=== PATIENT | male | born 1980 | race Caucasian/White ===

== ENCOUNTER 2018-10-30 12:45 | Emergency (ER) | payer SELFPAY ==
[2018-10-30 12:54] VITALS: BP 137/89; PULSE 81; RESP 22; TEMP 36.8; O2SAT 99; BMI 28.6
--- NOTE | 2018-10-30 13:01 | HMH.EDUTC ---
[facility] [place] Clinical Impression: Asthma exacerbation Qualifiers: Asthma severity: moderate Asthma persistence: persistent Qualified Code(s): J45.41 - Moderate persistent asthma with (acute) exacerbation Disposition: Home, Self-Care Condition on Discharge: Good Instructions: Asthma -- Adult Additional Instructions: Drink plenty of fluids. Take tylenol or ibuprofen for pain Take the medications as prescribed. Don't start the steroids until tomorrow. Go ahead and start the antibiotics today. The cough syrup will make you drowsy, so don't be driving or operating heavy machinery after taking it. Return or go to your regular doctor if you're not getting better in 48 hours. GO TO THE ER FOR ANY LIFE THREATENING SYMPTOMS, SUCH CHEST PAIN OR SHORTNESS OF BREATH Prescriptions: Promethazine/Dextromethorphan [Promethazine-Dm Syrup] 5 ml PO Q6HP PRN #240 syrup PRN Reason: Cough methylPREDNISolone [Medrol] 4 mg PO DIRECTED 6 Days #21 tab.ds.pk Azithromycin [Z-Supa 250mg Tab] 250 mg PO UD DOSE PK #6 tab Referrals: Provider,Referral, MD [Primary Care Provider] - Time of Disposition: 13:22 Medical Decision Making - Medical Records Medical records reviewed: Yes: I reviewed the patient's medical records. - Rodríguez Inquiry Pt receiving controlled substance: No Rodríguez was queried for this patient: No Vital Signs: 10/30/18 12:54 10/30/18 13:24 Temperature 98.3 F 98.3 F Temperature Source Oral Oral Pulse Rate 81 Pulse Rate [Right Brachial] 81 Respiratory Rate 22 22 Blood Pressure 137/89 Blood Pressure [Right Arm] 137/89 Blood Pressure Mean [Right Arm] 105 Blood Pressure Source Automatic Cuff Blood Pressure Source [Right Arm] Automatic Cuff Blood Pressure Position Sitting Blood Pressure Position [Right Arm] Sitting 02 Sat by Pulse Oximetry 99 Oxygen Delivery Method Room Air Room Air Orders (Tests/Meds): ED MEDICATIONS Discontinued Medications Generic Name Dose Route Start Last Admin Trade Name Freq PRN Reason Stop Dose Admin Ceftriaxone Sodium 1 gm 10/30/18 13:09 10/30/18 13:15 Rocephin 1gm Vial IM 10/30/18 13:10 1 gm ONCE ONE Administration Protocol Lidocaine HCl 0 ml 10/30/18 13:09 10/30/18 13:15 Lidocaine 1% 10ml Mdv IM 10/30/18 13:10 2.1 ml ONCE ONE Administration Methylprednisolone Sodium Succinate 125 mg 10/30/18 13:09 10/30/18 13:15 Solu-Medrol 125mg/2ml Vial IM 10/30/18 13:10 125 mg ONCE ONE Administration [facility] [place] - General Stated complaint: Congestion/Asthma Time Seen by Provider: 10/30/18 13:01 Mode of Arrival: Family Vehicle Source of Information: Patient Limitations: No Limitations Description of Symptoms (Recalled from Triage Doc. by RN): C/O DIFFICULTY BREATHING,TEMPERATURE X 2 WEEKS HEENT Symptoms (Recalled from RN notes): No Resp Symptoms (Recalled from RN notes): Yes Skin Symptoms (Recalled from RN notes): No MS Symptoms (Recalled from RN notes): No Functional Status (Recalled from RN notes): N/A - History of Present Illness Provider Complaint: He has a history of asthma. He states that over the past 2 weeks he has been coughing more than normal and wheezing more than normal. - Related Data Home Medications Medication Instructions Recorded Confirmed Buprenorphine HCl/Naloxone HCl 1.5 tab SL DAILY 10/30/18 10/30/18 [Zubsolv 5.7-1.4 mg Tablet Sl] Previous Rx's Medication Instructions Recorded Azithromycin [Z-Supa 250mg Tab] 250 mg PO UD DOSE PK #6 tab 10/30/18 Promethazine/Dextromethorphan 5 ml PO Q6HP PRN #240 syrup 10/30/18 [Promethazine-Dm Syrup] methylPREDNISolone [Medrol] 4 mg PO DIRECTED 6 Days #21 10/30/18 tab.ds.pk Allergies Allergy/AdvReac Type Severity Reaction Status Date / Time No Known Allergies Allergy Verified 07/20/18 16:05 - Worker's Comp Is this a Worker's Comp case?: No [facility] History - Hepatitis A Screen Drug use history?: No High risk sexual be
[2018-10-30 13:24] VITALS: BP 137/89; PULSE 81; RESP 22; TEMP 36.8; O2SAT 99
== END 2018-10-30 13:27 | disposition home or self-care (01) ==
PROVIDERS: Emergency Provider Nurse Practitioner Family
DX: J45.21 Mild intermittent asthma with (acute) exacerbation (principal); F17.210 Nicotine dependence, cigarettes, uncomplicated
CPT/HCPCS: 96372; 99201

== ENCOUNTER → 2020-01-31 14:23 | Outpatient (CLI) | payer BC, SELFPAY ==
[2020-02-02 15:27] LABS: Covid-19 Nasal PCR Sendout Lex Not Detected
== END ==
PROVIDERS: PCP Emergency Medicine; Visit Provider Nurse Practitioner Family
DX: Z20.828 Contact with and (suspected) exposure to other viral communicable diseases (principal)
CPT/HCPCS: U0004

== ENCOUNTER 2020-03-01 10:41 | Emergency (ER) | payer OTHER, SELFPAY ==
[2020-03-01 11:07] VITALS: BP 131/89; PULSE 76; RESP 20; O2SAT 98; BMI 28.0
--- NOTE | 2020-03-01 11:19 | HMH.EDUTC ---
[facility] [place] Dis[place] Clinical Impression: Exposure to COVID-19 virus Disposition: Home, Self-Care Condition on Discharge: Good Instructions: Preventing the Spread of Coronavirus Discharge Instructions Additional Instructions: Drink plenty of fluids. Take tylenol for pain or fever. Follow up with your regular doctor. GO TO THE ER FOR ANY WORSENING SYMPTOMS FOLLOW THE DIRECTIONS ON THE COVID-19 HAND OUT THAT WE GAVE YOU REGARDING SELF-ISOLATION UNTIL YOU KNOW YOUR COVID-19 RESULTS Referrals: Tyrone Bucio MD [Primary Care Provider] - Forms: Work/School Release Time of Disposition: 11:23 Medical Decision Making - Medical Records Medical records reviewed: No: I reviewed the patient's medical records. - Rodríguez Inquiry Pt receiving controlled substance: No Vital Signs: 03/01/20 11:07 Pulse Rate [Radial] 76 Respiratory Rate 20 Blood Pressure [Right Arm] 131/89 Blood Pressure Mean [Right Arm] 103 Blood Pressure Source [Right Arm] Automatic Cuff Blood Pressure Position [Right Arm] Sitting 02 Sat by Pulse Oximetry 98 Oxygen Delivery Method Room Air Orders (Tests/Meds): ORDERS Category Date Time Status Covid-19 Nasal PCR ([facility]) Routine Lab 03/01/20 10:[address] [facility] [place] HPI - General Stated complaint: wants covid test Time Seen by Provider: 03/01/20 11:19 Mode of Arrival: Ambulatory Source of Information: Patient Limitations: No Limitations Description of Symptoms (Recalled from Triage Doc. by RN): covid test no symptoms just finished 14 day quarantine HEENT Symptoms (Recalled from RN notes): No Resp Symptoms (Recalled from RN notes): No Skin Symptoms (Recalled from RN notes): No MS Symptoms (Recalled from RN notes): No Functional Status (Recalled from RN notes): wnl - History of Present Illness Provider Complaint: He is here to be tested for covid. He has been off work on a 14 day quarantine due to a previous exposure, but he had not developed any symptoms. - Related Data Home Medications Medication Instructions Recorded Confirmed Buprenorphine HCl/Naloxone HCl 1.5 tab SL DAILY 08/09/19 02/07/20 [Zubsolv 5.7-1.4 mg Tablet Sl] Previous Rx's Medication Instructions Recorded albuterol sulfate 90 mcg/actuation 2 inh INHALATION Q4-6H PRN #1 each 02/07/20 breath activated powder inhaler fluticasone 100 mcg-salmeterol 50 1 inh INHALATION BID #60 each 02/07/20 mcg/dose blistr powdr for inhalation tadalafil 5 mg tablet 5 mg PO DAILY PRN #30 tab 02/07/20 dextroamphetamine-amphetamine ER 10 mg PO DAILY #30 cap 02/09/20 10 mg 24hr capsule,extend release Allergies Allergy/AdvReac Type Severity Reaction Status Date / Time No Known Allergies Allergy Verified 02/07/20 10:02 - Worker's Comp Is this a Worker's Comp case?: No [facility] History - Hepatitis A Screen Drug use history?: No High risk sexual behaviors?: No History of sexually transmitted infection?: No Currently employed?: No Childcare worker?: No Do you have indoor plumbing?: Yes Do you have electricity?: Yes Attestation statement:: This patient has been screened for Hepatitis A risk factors. I have reviewed the patient's past medical history: Yes Medical History: Reports:: Asthma, Cancer Denies:: Diabetes Mellitus Type 2 Laterality Cases: Right: Arthroscopy Knee Other Surgeries: Yes: No Previous Surgery, Cancer Surgery, Cholecystectomy Amputation: No Fractures: No - Social History Smoking Status: Current every day smoker Tobacco Type: cigarettes # Packs/Day (cigarettes): 1 Alcohol Intake: never Substance Use Type: denies use Occupational Status: employed Housing: house Household Members: other Family Hx:: Hyperlipidemia, Cancer, Heart Attack ROS Obtained: Yes All systems reviewed & no additional complaints - Constitutional Constitutional: Denies chills, Denies fever(s) - ENT Ears, Nose, Mouth, and Throat: Denies dizziness, Denies otalgia, Denies sore throat - [facility]
[2020-03-01 11:38] VITALS: BP 131/89; PULSE 76; RESP 20; TEMP 36.7; O2SAT 98
== END 2020-03-01 11:39 | disposition home or self-care (01) ==
PROVIDERS: Emergency Provider Nurse Practitioner Family; PCP Emergency Medicine
DX: Z20.828 Contact with and (suspected) exposure to other viral communicable diseases (principal); J45.909 Unspecified asthma, uncomplicated; F17.210 Nicotine dependence, cigarettes, uncomplicated
CPT/HCPCS: 99201; U0003

== ENCOUNTER 2020-04-27 16:25 | Emergency (ER) | payer SELFPAY ==
[2020-04-27 17:05] VITALS: BP 125/80; PULSE 90; RESP 14; TEMP 36.4; O2SAT 98; BMI 28.8
--- NOTE | 2020-04-27 17:20 | HMH.EDUTC ---
[facility] [place]ression: Asthma exacerbation Qualifiers: Asthma severity: unspecified severity Asthma persistence: unspecified Qualified Code(s): J45.901 - Unspecified asthma with (acute) exacerbation Disposition: Home, Self-Care Condition on Discharge: Good Instructions: Asthma -- Adult, Preventing the Spread of Coronavirus Discharge Instructions Additional Instructions: Drink plenty of fluids. Take tylenol for pain or fever. Return if you begin to have difficulty breathing. Follow up with your regular doctor. GO TO THE ER FOR ANY WORSENING SYMPTOMS Prescriptions: Brompheniramine/Pseudoephed/Dm [Bromfed Dm Cough Syrup] 5 ml PO Q6HP PRN #240 syrup PRN Reason: Cough Transmission Status: Pending to [facility] methylPREDNISolone [Medrol] 4 mg PO DIRECTED 6 Days #21 tab.ds.pk Transmission Status: Pending to [facility] Azithromycin [Z-Supa 250mg Tab*] 250 mg PO UD DOSE PK #6 tab Transmission Status: Pending to [facility] Referrals: Tyrone Bucio MD [Primary Care Provider] - Forms: Work/School Release Time of Disposition: 17:44 Medical Decision Making - Medical Records Medical records reviewed: No: I reviewed the patient's medical records. - Rodríguez Inquiry Pt receiving controlled substance: No Vital Signs: 04/27/20 17:05 Temperature 97.5 F L Temperature Source Oral Pulse Rate [Right Brachial] 90 Respiratory Rate 14 Blood Pressure [Right Arm] 125/80 Blood Pressure Mean [Right Arm] 95 Blood Pressure Source [Right Arm] Automatic Cuff Blood Pressure Position [Right Arm] Sitting 02 Sat by Pulse Oximetry 98 Oxygen Delivery Method Room Air Orders (Tests/Meds): ED MEDICATIONS Discontinued Medications Generic Name Dose Route Start Last Admin Trade Name Freq PRN Reason Stop Dose Admin Ceftriaxone Sodium 1 gm 04/27/20 17:21 04/27/20 17:39 Ceftriaxone 1gm Vial IM 04/27/20 17:22 1 gm ONCE ONE Administration Protocol Lidocaine HCl 0 ml 04/27/20 17:21 04/27/20 17:38 Lidocaine 1% 5ml Pf Vial IM 04/27/20 17:22 2.1 ml ONCE ONE Administration Methylprednisolone Sodium Succinate 125 mg 04/27/20 17:21 04/27/20 17:38 Methylprednisolone Sod Succ 125mg Vial IM 04/27/20 17:22 125 mg ONCE ONE Administration ORDERS Category Date Time Status Covid-19 Nasal PCR Sendout [facility] Routine Lab 04/27/20 16:41 Ordered [facility] [place] - General Stated complaint: Sore throat, SOB Time Seen by Provider: 04/27/20 17:20 - History of Present Illness Provider Complaint: He states that for the past 3 days he has been having cough and worsening asthma symptoms. He denies any fever or chills. He denies any exposure to covid. - Related Data Home Medications Medication Instructions Recorded Confirmed Buprenorphine HCl/Naloxone HCl 1.5 tab SL DAILY 08/09/19 03/31/20 [Zubsolv 5.7-1.4 mg Tablet Sl] Previous Rx's Medication Instructions Recorded albuterol sulfate 90 mcg/actuation 2 inh INHALATION Q4-6H PRN #1 each 03/01/20 breath activated powder inhaler fluticasone 100 mcg-salmeterol 50 1 inh INHALATION BID #60 each 03/01/20 mcg/dose blistr powdr for inhalation dextroamphetamine-amphetamine ER 15 mg PO DAILY #30 cap 03/31/20 15 mg 24hr capsule,extend release tadalafil 5 mg tablet 5 mg PO DAILY PRN #30 tab 04/09/20 Azithromycin [Z-Supa 250mg Tab*] 250 mg PO UD DOSE PK #6 tab 04/27/20 Brompheniramine/Pseudoephed/Dm 5 ml PO Q6HP PRN #240 syrup 04/27/20 [Bromfed Dm Cough Syrup] methylPREDNISolone [Medrol] 4 mg PO DIRECTED 6 Days #21 04/27/20 tab.ds.pk Allergies Allergy/AdvReac Type Severity Reaction Status Date / Time No Known Allergies Allergy Verified 03/31/20 16:07 [facility] History - Hepatitis A Screen Attestation statement:: This patient has been screened for Hepatitis A risk factors. I have reviewed the patient's past medical history: Yes Medical History: Reports:: Asthma, Cancer Denie
[2020-04-27 17:51] VITALS: BP 125/80; PULSE 90; RESP 14; TEMP 36.4; O2SAT 98
[2020-04-29 11:26] LABS: Covid-19 Nasal PCR Sendout Lex Not Detected
== END 2020-04-27 17:58 | disposition home or self-care (01) ==
PROVIDERS: Emergency Provider Nurse Practitioner Family; PCP Emergency Medicine
DX: Z20.828 Contact with and (suspected) exposure to other viral communicable diseases (principal); J45.901 Unspecified asthma with (acute) exacerbation; F17.210 Nicotine dependence, cigarettes, uncomplicated; Z79.899 Other long term (current) drug therapy
CPT/HCPCS: 96372; 99202; U0004

== ENCOUNTER 2020-05-22 17:43 | Emergency (ER) | payer OTHER, SELFPAY ==
[2020-05-22 19:05] VITALS: BP 127/89; PULSE 84; RESP 18; TEMP 36.9; O2SAT 99; BMI 28.6
--- NOTE | 2020-05-22 19:25 | HMH.EDUTC ---
[facility] [place]: Encounter for laboratory testing for COVID-19 virus Disposition: Home, Self-Care Condition on Discharge: Good Instructions: Sore Throat, DI for Fever (Symptom) -- Adult, DI for COVID-19 (Suspected or Confirmed ), COVID-19: Testing and Tracing, Preventing the Spread of Coronavirus Discharge Instructions Additional Instructions: *Monitor Temp, Over the counter Motrin or Tylenol as directed/as needed Tylenol every 4 hours and Motrin every 6 hours (as long as your family doctor has told you that you can take it) for fever or pain. and straight to ER if unable to lower temp less than 101.0 after medication given *Warm salt water gargles may help to soothe the throat *Throat Lozenges *Warm fluids like tea with honey may help to soothe the throat *Sleep elevated *Humidifier/Vaporizer Your throat swab was sent for culture. Those results are typically sent to your primary care. Be sure to follow up in 2-3 days with your family doctor/primary care physician if no improvement so they can review those result and treat if necessary. If you don?t have a primary care doctor, I recommend you get one but in the mean time, you will have to return to a walk in clinic Follow up IMMEDIATELY for new or worsening symptoms or no Noticeable improvement over the next 48-72 hours. 911 for difficulty breathing or swallowing You were tested for today for COVID19 your test result should be back in the next 24-48 hours, you may call to the [facility] to see if your test results are back in the next 48 hours [phone] [facility] hours are 9am-9pm You was given a handout with instructions for Self Quarantine and Self isolation for while you wait on test results and what to do if they are positive If you are positive the Health Dept will be contacting you also Referrals: Bryson Vargas MD [Primary Care Provider] - As needed Forms: Work/School Release Time of Disposition: 19:32 Medical Decision Making - Rodríguez Inquiry Pt receiving controlled substance: No Rodríguez was queried for this patient: No Vital Signs: 05/22/20 19:05 Temperature 98.4 F Temperature Source Oral Pulse Rate [Right Brachial] 84 Respiratory Rate 18 Blood Pressure [Right Arm] 127/89 Blood Pressure Mean [Right Arm] 101 Blood Pressure Source [Right Arm] Automatic Cuff Blood Pressure Position [Right Arm] Sitting 02 Sat by Pulse Oximetry 99 Oxygen Delivery Method Room Air Orders (Tests/Meds): ORDERS Category Date Time Status Covid-19 Nasal PCR ([facility]) Routine Lab 05/22/20 19:[address] [facility] [place] - General Stated complaint: covid test Time Seen by Provider: 05/22/20 19:25 Mode of Arrival: Ambulatory Limitations: No Limitations Description of Symptoms (Recalled from Triage Doc. by RN): PATIENT C/O FEVER, SORE THROAT, NAUSEA AND HEADACHE. REQUESTING A COVID TEST HEENT Symptoms (Recalled from RN notes): Yes Resp Symptoms (Recalled from RN notes): No Skin Symptoms (Recalled from RN notes): No MS Symptoms (Recalled from RN notes): No Functional Status (Recalled from RN notes): WNL - History of Present Illness Provider Complaint: Patient state that a couple days ago he had some nasal congestion and scratchy throat State that he called into work last night because he wasnt feeling well States that today his nose started running and it was clear and throat feeling better but work wanted him to get tested for COVID before he can return - Related Data Home Medications Medication Instructions Recorded Confirmed Buprenorphine HCl/Naloxone HCl 1.5 tab SL DAILY 08/09/19 05/22/20 [Zubsolv 5.7-1.4 mg Tablet Sl] Dextroamphetamine/Amphetamine 15 mg PO DAILY 05/22/20 05/22/20 [Dextroamp-Amphet ER 15 mg Cap] Allergies Allergy/AdvReac Type Severity Reaction Status Date / Time No Known Allergies Allergy Verified 03/31/20 16:07 - Worker's Comp Is this a Worker's Comp case?: No [facility] History - Hepatitis A Screen Drug use history?: No H
[2020-05-22 19:39] VITALS: BP 127/89; PULSE 84; RESP 18; TEMP 36.9; O2SAT 99
== END 2020-05-22 19:40 | disposition home or self-care (01) ==
PROVIDERS: Emergency Provider Nurse Practitioner; PCP Family Medicine
DX: Z20.822 Contact with and (suspected) exposure to COVID-19 (principal); J45.909 Unspecified asthma, uncomplicated; F17.210 Nicotine dependence, cigarettes, uncomplicated
CPT/HCPCS: 99202; G0463; U0003

== ENCOUNTER 2020-06-23 09:02 | Emergency (ER) | payer OTHER, SELFPAY ==
[2020-06-23 09:14] VITALS: BP 145/90; PULSE 89; RESP 14; TEMP 36.6; O2SAT 100; BMI 27.8
--- NOTE | 2020-06-23 09:19 | HMH.EDUTC ---
[facility] [place] Impression: URI (upper respiratory infection) Qualifiers: URI type: unspecified URI Qualified Code(s): J06.9 - Acute upper respiratory infection, unspecified Disposition: Home, Self-Care Condition on Discharge: Good Instructions: Asthma -- Adult, DI for Cough -- Adult Additional Instructions: ? Monitor temp. Tylenol every 4 hours as needed and / or ibuprofen every 6 hours as needed ( As long as your primary care physician has told you that it ok to take both. For fever/aches/pains ER if no less than 101 despite Tylenol or Motrin ? Humidifier/vaporizer or hot steamy shower ? Inhaler every 4-6 hours as needed like we discussed. If unsure how to use it, ask pharmacist to demonstrate how. Should help open airways and improve cough, wheezing, and shortness of breath ? Mucinex during the day for your cough and cough suppressant only at night. Be sure to drink lots of water. Insurance may not cover a prescriptions for mucinex. Might be cheaper to get 400mg tablets and take 2 tablet in the morning, mid-day and evening with lots of water. Follow up IMMEDIATELY for new or worsening of symptoms OR no noticeable improvement over the next 48-72 hours. 911 immediately for any life threatening symptoms such as chest pain or difficulty breathing Referrals: Bryson Vargas MD [Primary Care Provider] - As needed Time of Disposition: 09:26 Medical Decision Making - Rodríguez Inquiry Pt receiving controlled substance: No Rodríguez was queried for this patient: No Vital Signs: 06/23/20 09:14 06/23/20 09:34 Temperature 98 F 98 F Temperature Source Oral Oral Pulse Rate 74 Pulse Rate [Right] 89 Respiratory Rate 14 16 Blood Pressure 132/90 Blood Pressure [Right Arm] 145/90 H Blood Pressure Mean [Right Arm] 108 Blood Pressure Source [Right Arm] Automatic Cuff Blood Pressure Position Sitting Blood Pressure Position [Right Arm] Sitting 02 Sat by Pulse Oximetry 100 Oxygen Delivery Method Room Air Room Air Orders (Tests/Meds): ED MEDICATIONS Discontinued Medications Generic Name Dose Route Start Last Admin Trade Name Freq PRN Reason Stop Dose Admin Ceftriaxone Sodium 1 gm 06/23/20 09:21 06/23/20 09:43 Ceftriaxone 1gm Vial IM 06/23/20 09:22 1 gm ONCE ONE Administration Protocol Lidocaine HCl 0 ml 06/23/20 09:21 06/23/20 09:29 Lidocaine 1% 5ml Pf Vial IM 06/23/20 09:22 2 ml ONCE ONE Administration Methylprednisolone Sodium Succinate 125 mg 06/23/20 09:21 06/23/20 09:30 Methylprednisolone Sod Succ 125mg Vial IM 06/23/20 09:22 125 mg ONCE ONE Administration [facility] [place] - General Stated complaint: Asthma acting up Time Seen by Provider: 06/23/20 09:19 Mode of Arrival: Ambulatory Source of Information: Patient Limitations: No Limitations Description of Symptoms (Recalled from Triage Doc. by RN): pt states he is having trouble breathing two days ago. he believes its related to his asthma. HEENT Symptoms (Recalled from RN notes): No Resp Symptoms (Recalled from RN notes): Yes (soa) Skin Symptoms (Recalled from RN notes): No MS Symptoms (Recalled from RN notes): No Functional Status (Recalled from RN notes): na - History of Present Illness Provider Complaint: Patient state that he thinks he is getting bronchitis or having asthma problems States that he has been having cough, and feeling congested State that at times he has coughed up some mucous States that today he was still feeling bad so he came in to get treatment - Related Data Home Medications Medication Instructions Recorded Confirmed Buprenorphine HCl/Naloxone HCl 1.5 tab SL DAILY 08/09/19 05/22/20 [Zubsolv 5.7-1.4 mg Tablet Sl] Previous Rx's Medication Instructions Recorded dextroamphetamine-amphetamine ER 15 mg PO DAILY #30 cap 05/29/20 15 mg 24hr capsule,extend release Allergies Allergy/AdvReac Type Severity Reaction Status Date / Time No Known Allergies Allergy Verified 06/23
[2020-06-23 09:34] VITALS: BP 132/90; PULSE 74; RESP 16; TEMP 36.6
== END 2020-06-23 09:45 | disposition home or self-care (01) ==
PROVIDERS: Emergency Provider Nurse Practitioner; PCP Family Medicine
DX: J06.9 Acute upper respiratory infection, unspecified (principal); J45.909 Unspecified asthma, uncomplicated; F17.210 Nicotine dependence, cigarettes, uncomplicated; Z79.899 Other long term (current) drug therapy
CPT/HCPCS: 96372; 99202; G0463

== ENCOUNTER → 2020-06-27 13:59 | Outpatient (CLI) | payer SELFPAY ==
[2020-06-27 14:15] LABS: Potassium 4.2 mmoL/L (3.5-5.1); Sodium 140 mmol/L (136-145)
[2020-06-27 14:17] LABS: Alanine Aminotransferase 16 U/L (12-78); Aspartate Amino Transferase 23 U/L (17-59); Blood Urea Nitrogen 10 mg/dl (9-20); Estimated Glomerular Filt Rate 94 ml/min (>60); GFR (African American) 114 ML/MIN (>60)
[2020-06-27 14:18] LABS: Albumin Level 4.6 g/dl (3.5-5.0); Albumin/Globulin Ratio 1.6 (1.1-1.8); Alkaline Phosphatase 75 U/L (38-126); Bilirubin,Total 0.4 mg/dl (0.2-1.3); Calcium 9.8 mg/dl (8.4-10.2); Carbon Dioxide 27 mmol/L (22.0-30.0); Chol/HDL Ratio 2.9 (1-3.5); Cholesterol 157 mg/dl (140-200); Globulin 2.8 g/dL (1.3-3.2); Glucose 91 mg/dl (74-100); HDL Cholesterol 54 mg/dl (40-60); Total Protein,Serum 7.4 g/dl (6.3-8.2); Triglycerides 108 mg/dl (30-150); VLDL Cholesterol 22 mg/dL (0-40)
[2020-06-27 14:28] LABS: Basophils # 0.1 K/mm3 (0-0.2); Basophils % 1.1 % (0.1-2.0); Eosinophils # 0.6 K/mm3 (0.0-0.4); Hematocrit 45.3 % (42.0-52.0); Hemoglobin 14.8 g/dL (14.1-18.0); Lymphocytes # 2.2 K/mm3 (0.7-4.5); Lymphocytes % 26.8 % (10-50); Mean Corpuscular HGB Conc 32.6 g/dL (31.8-35.4); Mean Corpuscular Hemoglobin 31.4 pg (27.0-31.2); Mean Corpuscular Volume 96.2 fl (80-94); Monocytes # 0.5 K/mm3 (0.1-1.0); Monocytes % 5.9 % (1.7-9.3); Neutrophils # 4.9 K/mm3 (1.8-7.8); Neutrophils % 59.3 % (37.0-80.0); Platelet Count 249 K/mm3 (142-424); Red Blood Count 4.71 M/mm3 (4.60-6.20); Red Cell Distribution Width 13.5 % (11.5-17.5); White Blood Count 8.3 K/mm3 (4.8-10.8)
[2020-06-27 14:29] LABS: Direct LDL Cholesterol 88.88 mg/dL (100-129)
[2020-06-27 14:32] LABS: Amphetamine/Metha Screen,Urine Negative ng/ml (<1000); Barbiturates Screen,Urine Negative ng/ml (<200)
[2020-06-27 14:33] LABS: Benzodiazepines Screen,Urine Negative ng/ml (<200)
[2020-06-27 14:34] LABS: Cannabinoid Screen,Urine Negative ng/ml (<50); Cocaine Screen,Urine Negative ng/ml (<300)
[2020-06-27 14:35] LABS: Free T4 (Free Thyroxine) 1.38 ng/dl (0.78-2.19); Methadone Screen,Urine Negative ng/ml (<300); Opiate Screen,Urine Negative ng/ml (<300)
[2020-06-27 14:36] LABS: Phencyclidine Screen,Urine Negative ng/ml (<25)
[2020-06-27 17:19] LABS: Anion Gap 11.2 mEq/L (5-15); Chloride 106 mmol/L (98-107)
== END ==
PROVIDERS: Visit Provider Emergency Medicine
DX: E66.3 Overweight (principal); Z79.899 Other long term (current) drug therapy
CPT/HCPCS: 80053; 80061; 80305; 84439; 84443; 85025

== ENCOUNTER → 2020-08-23 17:18 | Outpatient (CLI) | payer SELFPAY ==
[2020-08-23 18:00] LABS: Amphetamine/Metha Screen,Urine Negative ng/ml (<1000)
[2020-08-23 18:01] LABS: Barbiturates Screen,Urine Negative ng/ml (<200); Benzodiazepines Screen,Urine Negative ng/ml (<200)
[2020-08-23 18:02] LABS: Cannabinoid Screen,Urine Negative ng/ml (<50)
[2020-08-23 18:03] LABS: Cocaine Screen,Urine Negative ng/ml (<300); Methadone Screen,Urine Negative ng/ml (<300)
[2020-08-23 18:04] LABS: Opiate Screen,Urine Negative ng/ml (<300); Phencyclidine Screen,Urine Negative ng/ml (<25)
== END ==
PROVIDERS: Visit Provider Emergency Medicine
DX: Z79.899 Other long term (current) drug therapy (principal)
CPT/HCPCS: 80305

== ENCOUNTER → 2021-01-11 17:57 | Outpatient (CLI) | payer SELFPAY ==
[2021-01-11 19:34] LABS: Barbiturates Screen,Urine Negative ng/ml (<200)
[2021-01-11 19:35] LABS: Benzodiazepines Screen,Urine Negative ng/ml (<200)
[2021-01-11 19:36] LABS: Amphetamine/Metha Screen,Urine Positive ng/ml (<1000); Methadone Screen,Urine Negative ng/ml (<300)
[2021-01-11 19:37] LABS: Cannabinoid Screen,Urine Negative ng/ml (<50); Cocaine Screen,Urine Negative ng/ml (<300)
[2021-01-11 19:38] LABS: Opiate Screen,Urine Negative ng/ml (<300)
[2021-01-11 19:39] LABS: Phencyclidine Screen,Urine Negative ng/ml (<25)
== END ==
PROVIDERS: Visit Provider Nurse Practitioner Family
DX: Z79.899 Other long term (current) drug therapy (principal)
CPT/HCPCS: 80305

== ENCOUNTER → 2021-03-16 19:24 | Outpatient (CLI) | payer SELFPAY ==
[2021-03-16 20:06] LABS: Amphetamine/Metha Screen,Urine Positive ng/ml (<1000)
[2021-03-16 20:07] LABS: Barbiturates Screen,Urine Negative ng/ml (<200); Benzodiazepines Screen,Urine Negative ng/ml (<200)
[2021-03-16 20:08] LABS: Cannabinoid Screen,Urine Negative ng/ml (<50)
[2021-03-16 20:09] LABS: Cocaine Screen,Urine Negative ng/ml (<300); Methadone Screen,Urine Negative ng/ml (<300)
[2021-03-16 20:10] LABS: Opiate Screen,Urine Negative ng/ml (<300)
[2021-03-16 20:11] LABS: Phencyclidine Screen,Urine Negative ng/ml (<25)
== END ==
PROVIDERS: Visit Provider Family Medicine
DX: F90.9 Attention-deficit hyperactivity disorder, unspecified type (principal)
CPT/HCPCS: 80305

== ENCOUNTER 2021-04-22 18:20 | Emergency (ER) | payer BC, SELFPAY ==
[2021-04-22 19:35] VITALS: BP 145/82; PULSE 89; RESP 20; TEMP 36.8; O2SAT 97; BMI 27.8
--- NOTE | 2021-04-22 19:55 | HMH.EDUTC ---
[facility] [place]: Viral syndrome Asthma exacerbation Qualifiers: Asthma severity: unspecified severity Asthma persistence: unspecified Qualified Code(s): J45.901 - Unspecified asthma with (acute) exacerbation Pharyngitis Qualifiers: Pharyngitis/tonsillitis etiology: unspecified etiology Qualified Code(s): J02.9 - Acute pharyngitis, unspecified Disposition: Home, Self-Care Condition on Discharge: Good Instructions: Preventing the Spread of Coronavirus Discharge Instructions, DI for COVID-19 (Suspected or Confirmed ), DI for Asthma -- Adult Additional Instructions: Drink plenty of fluids. Take tylenol or ibuprofen for pain or fever. Take the medications as directed. Follow up with your regular doctor. GO TO THE ER FOR ANY WORSENING SYMPTOMS Quarantine until you know the results of your covid-19 test. If it is positive, the health department should call you and give you further instructions about your length of Quarantine and other things. Notify your school or workplace of your results and follow their instructions regarding return to work/school. Don't start the oral steroids until tomorrow, since you had the shot here today. His work excuse needs to count for 04/21 (Friday) also. Prescriptions: Benzonatate [Benzonatate 100mg cap] 100 mg PO TIDP PRN #30 cap PRN Reason: Cough Transmission Status: Pending to [facility] methylPREDNISolone [Medrol] 4 mg PO DIRECTED 6 Days #21 packet Transmission Status: Pending to [facility] guaiFENesin [Mucinex 600mg tablet] 1 - 2 tab PO BIDP PRN #30 tab PRN Reason: Congestion Transmission Status: Pending to [facility] Azithromycin [Z-Supa 250mg Tab*] 250 mg PO UD DOSE PK #6 tab Transmission Status: Pending to [facility] Referrals: Tyrone Bucio MD [Primary Care Provider] - Forms: Work/School Release Time of Disposition: 20:31 Medical Decision Making - Medical Records Medical records reviewed: No: I reviewed the patient's medical records. - Rodríguez Inquiry Pt receiving controlled substance: No Vital Signs: 04/22/21 19:35 04/22/21 20:08 Temperature 98.3 F 98.3 F Temperature Source Oral Pulse Rate 89 Pulse Rate [Left] 89 Respiratory Rate 20 20 Blood Pressure 145/82 H Blood Pressure [Right Arm] 145/82 H Blood Pressure Mean [Right Arm] 103 02 Sat by Pulse Oximetry 97 - Lab Data Lab results reviewed: Yes: I reviewed the patient's lab results. Orders (Tests/Meds): ED MEDICATIONS Discontinued Medications Generic Name Dose Route Start Last Admin Trade Name Jaz PRN Reason Stop Dose Admin Ceftriaxone Sodium 1 gm 04/22/21 20:14 Ceftriaxone 1gm Vial IM 04/22/21 20:15 ONCE ONE Lidocaine HCl 0 ml 04/22/21 20:14 Lidocaine 1% 5ml Pf Vial IM 04/22/21 20:15 ONCE ONE Methylprednisolone Sodium Succinate 125 mg 04/22/21 20:14 Methylprednisolone Sod Succ 125mg Vial IM 04/22/21 20:15 ONCE ONE ORDERS Category Date Time Status Covid-19 Nasal PCR ([facility]) Routine Lab 04/22/21 19:20 [place] [facility] [place] - General Stated complaint: sore throat Time Seen by Provider: 04/22/21 19:56 Mode of Arrival: Ambulatory Source of Information: Patient Limitations: No Limitations Description of Symptoms (Recalled from Triage Doc. by RN): pt c/o a sore throat, cough, nausea, and chills/sweating. HEENT Symptoms (Recalled from RN notes): Yes (sore throat) Resp Symptoms (Recalled from RN notes): Yes (cough) Skin Symptoms (Recalled from RN notes): No MS Symptoms (Recalled from RN notes): No Functional Status (Recalled from RN notes): wnl - History of Present Illness Provider Complaint: He has felt bad and had a sore throat since yesterday. He has had a cough and mild shortness of breath also. He has a history of asthma. He has not been vaccinated against covid-19. - Related Data Home Medications Medication
[2021-04-22 20:08] VITALS: BP 145/82; PULSE 89; RESP 20; TEMP 36.8
== END 2021-04-22 20:42 | disposition home or self-care (01) ==
PROVIDERS: Emergency Provider Nurse Practitioner Family; PCP Emergency Medicine
DX: B34.9 Viral infection, unspecified (principal); J45.901 Unspecified asthma with (acute) exacerbation; Z20.822 Contact with and (suspected) exposure to COVID-19
CPT/HCPCS: 96372; 99202; C9803; G0463; U0003; U0005

== ENCOUNTER → 2021-05-10 14:17 | Outpatient (CLI) | payer BC, SELFPAY ==
[2021-05-10 14:39] LABS: Basophils # 0.1 K/mm3 (0-0.2); Basophils % 1.2 % (0.1-2.0); Eosinophils # 0.3 K/mm3 (0.0-0.4); Eosinophils % 3.7 % (0.1-12.0); Hematocrit 42.8 % (42.0-52.0); Hemoglobin 13.8 g/dL (14.1-18.0); Lymphocytes # 1.9 K/mm3 (0.7-4.5); Lymphocytes % 25.5 % (10-50); Mean Corpuscular HGB Conc 32.3 g/dL (31.8-35.4); Mean Corpuscular Hemoglobin 32.2 pg (27.0-31.2); Mean Corpuscular Volume 99.8 fl (80-94); Mean Platelet Volume 8.7 fl (7.4-10.4); Monocytes # 0.4 K/mm3 (0.1-1.0); Monocytes % 5.8 % (1.7-9.3); Neutrophils # 4.6 K/mm3 (1.8-7.8); Neutrophils % 63.7 % (37.0-80.0); Platelet Count 235 K/mm3 (142-424); Red Blood Count 4.29 M/mm3 (4.60-6.20); White Blood Count 7.3 K/mm3 (4.8-10.8)
[2021-05-10 20:31] LABS: Amphetamine/Metha Screen,Urine Positive ng/ml (<1000); Barbiturates Screen,Urine Negative ng/ml (<200)
[2021-05-10 20:32] LABS: Benzodiazepines Screen,Urine Negative ng/ml (<200)
[2021-05-10 20:33] LABS: Cannabinoid Screen,Urine Negative ng/ml (<50)
[2021-05-10 20:34] LABS: Cocaine Screen,Urine Negative ng/ml (<300); Methadone Screen,Urine Negative ng/ml (<300)
[2021-05-10 20:35] LABS: Opiate Screen,Urine Negative ng/ml (<300)
[2021-05-10 20:36] LABS: Phencyclidine Screen,Urine Negative ng/ml (<25)
== END ==
PROVIDERS: Visit Provider Family Medicine
DX: Z00.00 Encounter for general adult medical examination without abnormal findings (principal)
CPT/HCPCS: 80305; 85025

== ENCOUNTER 2021-06-06 20:23 | Emergency (ER) | payer BC, SELFPAY ==
--- NOTE | 2021-06-06 22:19 | HMH.EDUTC ---
[facility] [place] Clinical Impression: Exposure to COVID-19 virus, Viral syndrome Asthma exacerbation Qualifiers: Asthma severity: unspecified severity Asthma persistence: unspecified Qualified Code(s): J45.901 - Unspecified asthma with (acute) exacerbation Disposition: Home, Self-Care Condition on Discharge: Good Instructions: DI for Asthma -- Adult, DI for COVID-19 (Suspected or Confirmed ), Preventing the Spread of Coronavirus Discharge Instructions Additional Instructions: Drink plenty of fluids. Take tylenol or ibuprofen for pain or fever. Take the medications as directed. Follow up with your regular doctor. GO TO THE ER FOR ANY WORSENING SYMPTOMS Quarantine until you know the results of your covid-19 test. Notify your school or workplace of your results and follow their instructions regarding return to work/school. Don't start the oral steroids until tomorrow, since you had the shot here today. Prescriptions: Ondansetron [Zofran 4mg ODT] 4 mg PO Q8HP PRN #20 tab PRN Reason: Nausea Transmission Status: Received by [facility] methylPREDNISolone [Medrol] 4 mg PO DIRECTED 6 Days #21 packet Transmission Status: Received by [facility] Referrals: Tyrone Bucio MD [Primary Care Provider] - Forms: Work/School Release Time of Disposition: 23:05 Medical Decision Making - Medical Records Medical records reviewed: No: I reviewed the patient's medical records. - Rodríguez Inquiry Pt receiving controlled substance: No Vital Signs: 06/06/21 22:21 06/06/21 22:32 Temperature 98.2 F 98.2 F Temperature Source Oral Pulse Rate 81 Pulse Rate [Left] 81 Respiratory Rate 16 16 Blood Pressure 143/81 H Blood Pressure [Right Arm] 143/81 H Blood Pressure Mean [Right Arm] 101 02 Sat by Pulse Oximetry 99 - Lab Data Lab results reviewed: Yes: I reviewed the patient's lab results. Orders (Tests/Meds): ED MEDICATIONS Discontinued Medications Generic Name Dose Route Start Last Admin Trade Name Freq PRN Reason Stop Dose Admin Ceftriaxone Sodium 1 gm 06/06/21 22:55 06/06/21 23:01 Ceftriaxone 1gm Vial IM 06/06/21 22:56 1 gm ONCE ONE Administration Lidocaine HCl 0 ml 06/06/21 22:55 06/06/21 23:01 Lidocaine 1% 5ml Pf Vial IM 06/06/21 22:56 2 ml ONCE ONE Administration Methylprednisolone Sodium Succinate 125 mg 06/06/21 22:55 06/06/21 23:01 Methylprednisolone Sod Succ 125mg Vial IM 06/06/21 22:56 125 mg ONCE ONE Administration [facility] [place] - General Stated complaint: covid tested/treated for symptoms Time Seen by Provider: 06/06/21 22:19 - History of Present Illness Provider Complaint: He is here after starting to feel bad this morning. He has been exposed to covid-19 in his home by his daughter having it. He has a history of asthma. He denies increased shortness of breath, but he has been having some wheezing. - Related Data Home Medications Medication Instructions Recorded Confirmed Buprenorphine HCl/Naloxone HCl 1.5 tab SL DAILY 08/09/19 05/10/21 [Zubsolv 5.7-1.4 mg Tablet Sl] albuterol sulfate 90 mcg/actuation 2 puff INHALATION Q6H PRN 06/27/20 05/10/21 aerosol inhaler Previous Rx's Medication Instructions Recorded fluticasone 100 mcg-salmeterol 50 1 inh INHALATION BID #60 each 08/23/20 mcg/dose blistr powdr for inhalation tadalafil 5 mg tablet 5 mg PO DAILY #30 tab 08/23/20 dextroamphetamine-amphetamine ER 20 mg PO TID PRN #90 cap 05/10/21 20 mg 24hr capsule,extend release Ondansetron [Zofran 4mg ODT] 4 mg PO Q8HP PRN #20 tab 06/06/21 methylPREDNISolone [Medrol] 4 mg PO DIRECTED 6 Days #21 06/06/21 packet Allergies Allergy/AdvReac Type Severity Reaction Status Date / Time No Known Allergies Allergy Verified 05/10/21 11:18 [facility] History - Hepatitis A Screen Attestation statement:: This patient has been screened for Hepatitis A risk factors. I h
[2021-06-06 22:21] VITALS: BP 143/81; PULSE 81; RESP 16; TEMP 36.8; O2SAT 99; BMI 27.3
[2021-06-06 22:32] VITALS: BP 143/81; PULSE 81; RESP 16; TEMP 36.8
== END 2021-06-06 23:09 | disposition home or self-care (01) ==
PROVIDERS: Emergency Provider Nurse Practitioner Family; PCP Emergency Medicine
DX: J45.901 Unspecified asthma with (acute) exacerbation (principal); Z20.822 Contact with and (suspected) exposure to COVID-19; F17.210 Nicotine dependence, cigarettes, uncomplicated
CPT/HCPCS: 96372; 99202; C9803; G0463; J0696; U0003; U0005

== ENCOUNTER 2021-09-13 15:08 | Emergency (ER) | payer SELFPAY ==
--- NOTE | 2021-09-13 15:42 | HMH.EDUTC ---
[facility] [place] Clinical Impression: Asthma exacerbation Qualifiers: Asthma severity: unspecified severity Asthma persistence: unspecified Qualified Code(s): J45.901 - Unspecified asthma with (acute) exacerbation Disposition: Home, Self-Care Condition on Discharge: Good Instructions: Asthma -- Adult, DI for Asthma -- Adult Additional Instructions: Drink plenty of fluids. Take tylenol or ibuprofen for pain or fever. Take the medications as directed. Follow up with your regular doctor. GO TO THE ER FOR ANY WORSENING SYMPTOMS Don't start the oral steroids until tomorrow, since you had the shot here today. The cough medication (promethazine dm) will make you drowsy, so don't drive or operate heavy machinery after taking it. Prescriptions: Benzonatate [Benzonatate 100mg cap] 100 mg PO TIDP PRN #30 cap PRN Reason: Cough Transmission Status: Received by [facility] predniSONE [Deltasone 10mg tablet] 10 mg PO DAILY 9 Days #21 tab Transmission Status: Received by [facility] Azithromycin [Z-Supa 250mg Tab*] 250 mg PO UD DOSE PK #6 tab Transmission Status: Received by [facility] Referrals: Justus Mejia APRN [Primary Care Provider] - Time of Disposition: 16:23 Medical Decision Making - Medical Records Medical records reviewed: No: I reviewed the patient's medical records. - Rodríguez Inquiry Pt receiving controlled substance: No Vital Signs: 09/13/21 15:44 09/13/21 16:47 Temperature 99.4 F 98.8 F Temperature Source Oral Pulse Rate 98 H Pulse Rate [Left] 101 H Respiratory Rate 19 18 Blood Pressure 130/90 Blood Pressure [Right Arm] 130/111 H Blood Pressure Mean [Right Arm] 117 02 Sat by Pulse Oximetry 98 - Lab Data Lab Results 09/13/21 15:41: Group A Strep Rapid Negative 09/13/21 15:44: Influenza Type A Ag Negative, Influenza Type B Ag Negative Orders (Tests/Meds): ED MEDICATIONS Discontinued Medications Generic Name Dose Route Start Last Admin Trade Name Freq PRN Reason Stop Dose Admin Ceftriaxone Sodium 1 gm 09/13/21 16:18 09/13/21 16:30 Ceftriaxone 1gm Vial IM 09/13/21 16:19 1 gm ONCE ONE Administration Lidocaine HCl 0 ml 09/13/21 16:18 09/13/21 16:30 Lidocaine 1% 5ml Pf Vial IM 09/13/21 16:19 2 ml ONCE ONE Administration Methylprednisolone Sodium Succinate 125 mg 09/13/21 16:18 09/13/21 16:31 Methylprednisolone Sod Succ 125mg Vial IM 09/13/21 16:19 125 mg ONCE ONE Administration [facility] [place] - General Stated complaint: nausea, sore throat, cough maria a Time Seen by Provider: 09/13/21 15:42 - History of Present Illness Provider Complaint: He states that for the past 4 days he has had chest congestion, cough, wheezing and feeling bad. He has a history of asthma and he usually has a flare up like this every spring. He denies any fever or chest pain. - Related Data Home Medications Medication Instructions Recorded Confirmed Buprenorphine HCl/Naloxone HCl 1.5 tab SL DAILY 08/09/19 07/31/21 [Zubsolv 5.7-1.4 mg Tablet Sl] albuterol sulfate 90 mcg/actuation 2 puff INHALATION Q6H PRN 06/27/20 07/31/21 aerosol inhaler Previous Rx's Medication Instructions Recorded fluticasone 100 mcg-salmeterol 50 1 inh INHALATION BID #60 each 08/23/20 mcg/dose blistr powdr for inhalation tadalafil 5 mg tablet 5 mg PO DAILY #30 tab 08/23/20 Ondansetron [Zofran 4mg ODT] 4 mg PO Q8HP PRN #20 tab 06/06/21 dextroamphetamine-amphetamine 20 20 mg PO TID #90 tab 08/31/21 mg tablet Azithromycin [Z-Supa 250mg Tab*] 250 mg PO UD DOSE PK #6 tab 09/13/21 Benzonatate [Benzonatate 100mg 100 mg PO TIDP PRN #30 cap 09/13/21 cap] predniSONE [Deltasone 10mg tablet] 10 mg PO DAILY 9 Days #21 tab 09/13/21 Allergies Allergy/AdvReac Type Severity Reaction Status Date / Time No Known Allergies Allergy Verified 07/31/21 10:39 [facility] History - Hepatitis A Screen Att
[2021-09-13 15:44] VITALS: BP 130/111; PULSE 101; RESP 19; TEMP 37.4; O2SAT 98; BMI 27.3
[2021-09-13 15:54] LABS: UTC Influenza A Antigen Negative (Negative); UTC Influenza B Antigen Negative (Negative)
[2021-09-13 16:09] LABS: Strep Scrn Group A (Rapid) Negative (Negative)
[2021-09-13 16:47] VITALS: BP 130/90; PULSE 98; RESP 18; TEMP 37.1
== END 2021-09-13 16:53 | disposition home or self-care (01) ==
PROVIDERS: Emergency Provider Nurse Practitioner Family; PCP Nurse Practitioner Family
DX: J45.901 Unspecified asthma with (acute) exacerbation (principal); J02.9 Acute pharyngitis, unspecified; R11.0 Nausea; F17.210 Nicotine dependence, cigarettes, uncomplicated; Z79.51 Long term (current) use of inhaled steroids; Z85.9 Personal history of malignant neoplasm, unspecified; Z82.49 Family history of ischemic heart disease and other diseases of the circulatory system; Z80.9 Family history of malignant neoplasm, unspecified; Z83.438 Family history of other disorder of lipoprotein metabolism and other lipidemia
CPT/HCPCS: 87430; 87804; 96372; 99213; G0463; J0696

== ENCOUNTER 2021-10-06 21:42 | Emergency (ER) | payer SELFPAY ==
[2021-10-06 21:43] VITALS: BP 164/97; PULSE 78; RESP 18; TEMP 37; O2SAT 98; BMI 26.9
--- NOTE | 2021-10-06 21:46 | HMH.EDGENADL ---
ED Disposition Clinical Impression: Left shoulder pain Qualifiers: Chronicity: acute Qualified Code(s): M25.512 - Pain in left shoulder Disposition: Home, Self-Care Condition on Discharge: Good Referrals: Tyrone Bucio MD [Primary Care Provider] - - Critical Care Critical Care Time: No Attestation: On , the high probability of a clinically significant, sudden or life threatening deterioration of the following system(s) required my full and direct attention, intervention and personal management. The time I documented below is in addition to time spent performing reported procedures but includes the following listed in this critical care notation. Medical Decision Making - Medical Records Medical records reviewed: Yes: I reviewed the patient's medical records. - Rodríguze Inquiry Pt receiving controlled substance: No Vital Signs: 10/06/21 21:43 10/06/21 22:00 10/06/21 22:36 Temperature 98.6 F Temperature Source Oral Pulse Rate 92 H 102 H Pulse Rate [Right] 78 Respiratory Rate 18 Blood Pressure 148/94 H 137/95 H Blood Pressure [Right Arm] 164/97 H Blood Pressure Mean [Right Arm] 119 Blood Pressure Source [Right Arm] Automatic Cuff 02 Sat by Pulse Oximetry 98 100 99 Oxygen Delivery Method Room Air Room Air Room Air - Lab Data Lab results reviewed: Yes: I reviewed the patient's lab results. Lab Results 10/06/21 20:30: WBC 7.4, RBC 5.08, Hgb 16.0, Hct 48.0, MCV 94.6 H, MCH 31.5 H, MCHC 33.3, RDW 14.4, Plt Count 303, MPV 7.9, Neut % (Auto) 63.9, Lymph % (Auto) 27.1, Latimer % (Auto) 5.3, Eos % (Auto) 3.6, Baso % (Auto) 2.9 H, Neut # (Auto) 4.7, Lymph # (Auto) 2.0, Latimer # (Auto) 0.4, Eos # (Auto) 0.3, Baso # (Auto) 0.2 10/06/21 20:30: Sodium 142, Potassium 4.0, Chloride 104, Carbon Dioxide 26, Anion Gap 16.0 H, BUN 11, Creatinine 0.70, Estimated Creat Clear 164, Estimated GFR 125, Est GFR ( Amer) 151, Glucose 93, Calcium 10.5 H, Total Bilirubin 0.1 L, AST 22, ALT 17, Alkaline Phosphatase 75, C-Reactive Protein < 0.3, Total Protein 8.2, Albumin 5.2 H, Globulin 3.0, Albumin/Globulin Ratio 1.7 10/06/21 20:30: ESR 14 Result diagrams: 10/06/21 20:30 10/06/21 20:30 Orders (Tests/Meds): ED MEDICATIONS Discontinued Medications Generic Name Dose Route Start Last Admin Trade Name Jaz PRN Reason Stop Dose Admin Ketorolac Tromethamine 15 mg 10/06/21 22:09 10/06/21 22:36 Ketorolac 30mg/Ml Vial IV 10/06/21 22:10 15 mg ONCE ONE Administration Lidocaine 1 each 10/06/21 22:10 10/06/21 22:36 Lidocaine 5% Transdermal Patch TP 10/06/21 22:11 1 each ONCE ONE Administration Methocarbamol 500 mg 10/07/21 09:00 Methocarbamol 500mg Tablet PO 10/07/21 09:01 ONCE ONE Methocarbamol 500 mg 10/06/21 22:38 10/06/21 22:38 Methocarbamol 500mg Tablet PO 10/06/21 22:39 500 mg ONCE ONE Administration Medical Decision Narrative: Patient is a healthy 41-year-old male presenting for chief complaint of worsening left shoulder pain for 2 weeks. Patient denies any systemic symptoms. Differential diagnosis includes, but is not limited to, fracture, dislocation, rotator cuff partial versus full tear, muscle spasm, cellulitis. Initial exam, patient is hemodynamically stable, nontoxic-appearing and afebrile. Patient has limited range of motion secondary to pain especially with internal rotation of his extremity and resistance to downward force. Concern for rotator cuff injury. Patient also has tense musculature around his trapezius muscle, shoulder blade and left lateral chest wall muscles. Patient was evaluated with CBC, CMP, CRP, ESR, x-rays of the left shoulder and humerus and treated with Toradol, Robaxin and a lidocaine patch. Reassessment, patient reports significant improvement. Lab work is negative which lowers my suspicion for underlying septic arthritis, inflammation or infection of the muscle or underlying cellulitis. I believe his injury is secondary to
[2021-10-06 22:00] VITALS: BP 148/94; PULSE 92; O2SAT 100
--- NOTE | 2021-10-06 22:11 | XR_ITS ---
PROCEDURE INFORMATION: Exam: XR Left Shoulder Exam date and time: 10/06/2021 10:12 PM Age: 41 years old Clinical indication: Pain; Shoulder; Left; Additional info: Shoulder pain TECHNIQUE: Imaging protocol: XR Left shoulder. Views: 2 or more views. Total images: 0 COMPARISON: CR Chest 12/15/2018 2:31 PM FINDINGS: Bones/joints: No fractures. Glenohumeral alignment is normal. A.C. joint alignment is normal. 3 mm bone island in the humeral head. Adjacent ribs are intact. Lungs: Visualized lung parenchyma is unremarkable. Pleural space: No visible pleural effusion or pneumothorax. Soft tissues: No gross soft tissue abnormalities. IMPRESSION: No acute findings.
--- NOTE | 2021-10-06 22:11 | XR_ITS ---
PROCEDURE INFORMATION: Exam: XR Left Humerus Exam date and time: 10/06/2021 10:14 PM Age: 41 years old Clinical indication: Pain; Upper arm; Left TECHNIQUE: Imaging protocol: XR Left humerus. Views: 2 or more views. Total images: 0 COMPARISON: CR XR SHOULDER LT MIN 2V 10/06/2021 10:12 PM FINDINGS: Bones/joints: No fractures. Small bone island in the humeral head. Glenohumeral alignment and elbow alignment are normal. A.c. joint alignment is normal. Visualized ribs appear intact. Lungs: 9 mm nodular density projects in the peripheral left mid lung on series 2, image 1. It is not well seen on the other images and may represent a nipple shadow. Consider chest x-ray with nipple markers or nonemergent noncontrast chest CT to exclude pulmonary nodule. Pleural space: No gross pneumothorax or gross pleural effusion in the visualized portions of the chest. Soft tissues: No periostitis or osteolysis. No gross soft tissue abnormalities. No radiopaque foreign bodies. IMPRESSION: 1. No acute osseous abnormalities. 2. A 9 mm nodular density projects in the peripheral left mid lung distribution on 1 of the views. This might represent an incidental nipple shadow but is nonspecific. Recommend either chest x-ray with nipple markers or nonemergent noncontrast chest CT to exclude a true pulmonary nodule.
[2021-10-06 22:36] VITALS: BP 137/95; PULSE 102; O2SAT 99
[2021-10-06 22:40] LABS: Basophils # 0.2 K/mm3 (0-0.2); Basophils % 2.9 % (0.1-2.0); Eosinophils # 0.3 K/mm3 (0.0-0.4); Eosinophils % 3.6 % (0.1-12.0); Lymphocytes % 27.1 % (10-50); Mean Corpuscular HGB Conc 33.3 g/dL (31.8-35.4); Mean Corpuscular Hemoglobin 31.5 pg (27.0-31.2); Mean Corpuscular Volume 94.6 fl (80-94); Mean Platelet Volume 7.9 fl (7.4-10.4); Monocytes # 0.4 K/mm3 (0.1-1.0); Monocytes % 5.3 % (1.7-9.3); Neutrophils # 4.7 K/mm3 (1.8-7.8); Neutrophils % 63.9 % (37.0-80.0); Platelet Count 303 K/mm3 (142-424); Red Blood Count 5.08 M/mm3 (4.60-6.20); Red Cell Distribution Width 14.4 % (11.5-17.5); White Blood Count 7.4 K/mm3 (4.8-10.8)
[2021-10-06 22:48] LABS: Alanine Aminotransferase 17 U/L (12-78); Albumin Level 5.2 g/dl (3.5-5.0); Albumin/Globulin Ratio 1.7 (1.1-1.8); Alkaline Phosphatase 75 U/L (38-126); Aspartate Amino Transferase 22 U/L (17-59); Blood Urea Nitrogen 11 mg/dl (9-20); Calcium 10.5 mg/dl (8.4-10.2); Carbon Dioxide 26 mmol/L (22.0-30.0); Chloride 104 mmol/L (98-107); Creatinine Clearance Estimated 164 mL/min (50-200); Estimated Glomerular Filt Rate 125 ml/min (>60); GFR (African American) 151 ML/MIN (>60); Glucose 93 mg/dl (74-100); Sodium 142 mmol/L (136-145); Total Protein,Serum 8.2 g/dl (6.3-8.2)
[2021-10-06 23:04] LABS: Bilirubin,Total 0.1 mg/dl (0.2-1.3); C-Reactive Protein < 0.3 mg/L (0-4); Erythrocyte Sedimentation Rate 14 mm/hr (0-15)
--- NOTE | 2021-10-06 23:13 | XR_ITS ---
PROCEDURE INFORMATION: Exam: XR Chest Exam date and time: 10/06/2021 11:22 PM Age: 41 years old Clinical indication: Abnormal findings; Abnormal radiologic exam of lung or chest; Additional info: Concern for nodule TECHNIQUE: Imaging protocol: XR of the chest. Views: 1 view. Total images: 0 COMPARISON: CR Chest 12/15/2018 2:31 PM FINDINGS: Lungs: Normal pulmonary expansion. Pulmonary vasculature grossly normal. No gross pulmonary infiltrates or edema pattern. Pleural spaces: No pleural effusion. No pneumothorax. Heart/Mediastinum: Heart size normal. No tracheal/mediastinal shift. Bones/joints: No acute osseous abnormalities are identified. Soft tissues: Nipple markers in place. No pulmonary nodules are visualized currently. Considering the position of the nipple markers, the previously visualized questionable nodular density projecting over the peripheral left mid lung on the shoulder x-rays is felt to have represented a nipple shadow. IMPRESSION: 1. No acute thoracic process. 2. No pulmonary nodules are identified. The previously questioned possible nodular density projecting over the left lung on the shoulder x-rays is felt to have represented a nipple shadow.
[2021-10-07 00:42] VITALS: BP 145/82; PULSE 79; RESP 18; TEMP 36.9; O2SAT 98
== END 2021-10-07 00:45 | disposition home or self-care (01) ==
PROVIDERS: Emergency Provider Emergency Medicine; PCP Emergency Medicine
DX: M25.512 Pain in left shoulder (principal); M79.622 Pain in left upper arm; J45.909 Unspecified asthma, uncomplicated; F17.210 Nicotine dependence, cigarettes, uncomplicated; Z79.51 Long term (current) use of inhaled steroids; Z82.49 Family history of ischemic heart disease and other diseases of the circulatory system; Z83.438 Family history of other disorder of lipoprotein metabolism and other lipidemia; Z80.9 Family history of malignant neoplasm, unspecified; X50.0XXA Overexertion from strenuous movement or load, initial encounter
CPT/HCPCS: 71045; 73030; 73060; 80053; 85025; 85651; 86140; 96374; 96375; 99285

== ENCOUNTER 2021-12-05 18:46 | Emergency (ER) | payer SELFPAY ==
[2021-12-05 18:55] VITALS: BP 139/99; PULSE 111; RESP 18; TEMP 36.6; O2SAT 98; BMI 27.0
--- NOTE | 2021-12-05 19:09 | HMH.EDUTC ---
[facility] [place]ression: COVID-19 Disposition: Home, Self-Care Condition on Discharge: Good Instructions: DI for COVID-19 (Suspected or Confirmed ), Preventing the Spread of Coronavirus Discharge Instructions Additional Instructions: Drink plenty of fluids. Take tylenol or ibuprofen for pain or fever. Take the medications as directed. Follow up with your regular doctor. GO TO THE ER FOR ANY WORSENING SYMPTOMS Quarantine until you know the results of your covid-19 test. Notify your school or workplace of your results and follow their instructions regarding return to work/school. Prescriptions: Ondansetron [Zofran 4mg ODT] 4 mg PO Q8HP PRN #12 tab PRN Reason: Nausea Transmission Status: Received by [facility] Benzonatate [Benzonatate 100mg cap] 100 mg PO TIDP PRN #30 cap PRN Reason: Cough Transmission Status: Received by [facility] methylPREDNISolone [Medrol] 4 mg PO DIRECTED 6 Days #21 packet Transmission Status: Received by [facility] Referrals: Tyrone Bucio MD [Primary Care Provider] - Forms: Work/School Release Time of Disposition: 19:29 Medical Decision Making - Medical Records Medical records reviewed: No: I reviewed the patient's medical records. - Rodríguez Inquiry Pt receiving controlled substance: No Vital Signs: 12/05/21 18:55 12/05/21 19:35 Temperature 97.8 F 97.8 F Temperature Source Oral Oral Pulse Rate 108 H Pulse Rate [Left Radial] 111 H Respiratory Rate 18 18 Blood Pressure 130/74 Blood Pressure [Right Arm] 139/99 H Blood Pressure Mean [Right Arm] 112 02 Sat by Pulse Oximetry 98 Oxygen Delivery Method Room Air - Lab Data Lab results reviewed: Yes: I reviewed the patient's lab results. Orders (Tests/Meds): ED MEDICATIONS Discontinued Medications Generic Name Dose Route Start Last Admin Trade Name Freq PRN Reason Stop Dose Admin Ceftriaxone Sodium 1 gm 12/05/21 19:40 12/05/21 19:52 Ceftriaxone 1gm Vial IM 12/05/21 19:41 1 gm ONCE ONE Administration Lidocaine HCl 0 ml 12/05/21 19:40 12/05/21 19:53 Lidocaine 1% 5ml Pf Vial IM 12/05/21 19:41 2 ml ONCE ONE Administration Methylprednisolone Sodium Succinate 125 mg 12/05/21 19:40 12/05/21 19:52 Methylprednisolone Sod Succ 125mg Vial IM 12/05/21 19:41 125 mg ONCE ONE Administration [facility] [place] - General Stated complaint: covid test, sore throat,nausea,weak Time Seen by Provider: 12/05/21 19:11 - History of Present Illness Provider Complaint: He has been exposed to covid-19 at his job. He has felt bad for the past 3 days. He had a positive covid-19 test on a home test, but he needs a pcr test for this job. - Related Data Home Medications Medication Instructions Recorded Confirmed albuterol sulfate 90 mcg/actuation 2 puff IH Q6H PRN 06/27/20 10/09/21 aerosol inhaler Fluticasone Propion/Salmeterol 1 inh IH BID 10/06/21 10/09/21 [Fluticasone-Salmeterol 100-50] Previous Rx's Medication Instructions Recorded methocarbamoL [Methocarbamol] 500 mg PO QID 5 Days #20 tab 10/07/21 dextroamphetamine-amphetamine 20 20 mg PO TID #90 tab 10/09/21 mg tablet Benzonatate [Benzonatate 100mg 100 mg PO TIDP PRN #30 cap 12/05/21 cap] Ondansetron [Zofran 4mg ODT] 4 mg PO Q8HP PRN #12 tab 12/05/21 methylPREDNISolone [Medrol] 4 mg PO DIRECTED 6 Days #21 12/05/21 packet Allergies Allergy/AdvReac Type Severity Reaction Status Date / Time No Known Allergies Allergy Verified 10/09/21 15:34 [facility] History - Hepatitis A Screen Attestation statement:: This patient has been screened for Hepatitis A risk factors. I have reviewed the patient's past medical history: Yes Medical History: Reports:: Asthma, Cancer Denies:: Diabetes Mellitus Type 2 Laterality Cases: Right: Arthroscopy Knee, Other Other Surgeries: Yes: No Previous Surgery, Cancer Surgery, C
[2021-12-05 19:35] VITALS: BP 130/74; PULSE 108; RESP 18; TEMP 36.6; O2SAT 98
== END 2021-12-05 20:01 | disposition home or self-care (01) ==
PROVIDERS: Emergency Provider Nurse Practitioner Family; PCP Emergency Medicine
DX: U07.1 COVID-19 (principal)
CPT/HCPCS: 96372; 99212; C9803; G0463; J0696; U0003; U0005

== ENCOUNTER → 2022-03-15 16:42 | Outpatient (CLI) | payer MEDICAID, SELFPAY ==
[2022-03-15 16:47] LABS: Amphetamine/Metha Screen,Urine Positive ng/ml (<1000); Barbiturates Screen,Urine Negative ng/ml (<200)
[2022-03-15 16:48] LABS: Benzodiazepines Screen,Urine Negative ng/ml (<200)
[2022-03-15 16:49] LABS: Cannabinoid Screen,Urine Negative ng/ml (<50); Cocaine Screen,Urine Negative ng/ml (<300)
[2022-03-15 16:50] LABS: Methadone Screen,Urine Negative ng/ml (<300)
[2022-03-15 16:51] LABS: Opiate Screen,Urine Negative ng/ml (<300)
[2022-03-15 16:52] LABS: Phencyclidine Screen,Urine Negative ng/ml (<25)
== END ==
PROVIDERS: PCP Nurse Practitioner Family; Visit Provider Nurse Practitioner Family
DX: Z79.899 Other long term (current) drug therapy (principal)
CPT/HCPCS: 80305

== ENCOUNTER 2022-04-09 00:08 | Emergency (ER) | payer MEDICAID, SELFPAY ==
[2022-04-09 00:08] VITALS: BP 132/99; PULSE 103; RESP 16; TEMP 37.1; O2SAT 100; BMI 28.8
--- NOTE | 2022-04-09 01:24 | HMH.EDEAR ---
Discharge Plan Disposition Patient Disposition: Home, Self-Care Prescriptions Prescriptions: New prednisone [prednisone] 20 mg tablet 20 mg PO DAILY Qty: 7 0RF cephalexin [cephalexin] 500 mg capsule 500 mg PO TID Qty: 30 0RF No Action albuterol sulfate 90 mcg/actuation HFA aerosol inhaler 2 puff IH Q6H PRN (Reason: Shortness Of Breath Or Wheezing) Zyrtec 10 mg capsule 10 mg PO DAILY Qty: 30 2RF fluticasone propionate [Flonase Allergy Relief] 50 mcg/actuation spray,suspension 1 spray intranasal DAILY Qty: 16 2RF Rx Instructions: administer into each nostril dextroamphetamine-amphetamine 20 mg tablet 20 mg PO TID Qty: 90 0RF Rx Instructions: administer doses at least 4-6 hours apart fluticasone propion-salmeterol 1 EACH blister with device 1 inh IH BID methocarbamol 500 MG tablet 500 mg PO QID 5 Days Qty: 20 0RF Referrals Follow up/Referrals: Justus Mejia APRN [Primary Care Provider] - See instructions Clinical Impressions Clinical Impression: Otitis externa Instructions Patient Instructions: DI for Otitis Externa Discharge ED Provider: Tyrone Bucio Ear HPI General Chief complaint: Ear Stated complaint: left ear pain Time Seen by Provider: 04/09/22 01:25 Mode of Arrival: Ambulatory Source of Information: Patient Limitations: No Limitations Description of Symptoms (Recalled from ER Triage Doc. by RN): pt c/o lt ear pain x 3 days History of Present Illness HPI Narrative: progressive lt ear pain x 3 day w/o drainage or fever MD Complaint: ear pain Location: left ear Duration: intermittent Severity: moderate Discharge from ear: no Associated symptoms ear: ear swelling Treatment prior to arrival: none Related Data Home Medications Medication Instructions Recorded Confirmed albuterol sulfate 90 mcg/actuation 2 puff inhalation Q6H PRN 06/27/20 03/15/22 aerosol inhaler Shortness Of Breath Or Wheezing fluticasone 100 mcg-salmeterol 50 1 inh inhalation BID Asthma 10/06/21 03/15/22 mcg/dose blistr powdr for inhalation Previous Rx's Medication Instructions Recorded methocarbamol 500 mg tablet 500 mg PO QID 5 days #20 tabs 10/07/21 cetirizine 10 mg capsule (Zyrtec) 10 mg PO DAILY #30 caps 03/15/22 dextroamphetamine-amphetamine 20 20 mg PO TID adhd #90 tabs 03/15/22 mg tablet fluticasone propionate 50 1 spray intranasal DAILY #16 grams 03/15/22 mcg/actuation nasal spray,suspension (Flonase Allergy Relief) cephalexin 500 mg capsule 500 mg PO TID #30 caps 04/09/22 prednisone 20 mg tablet 20 mg PO DAILY #7 tabs 04/09/22 Allergies Allergy/AdvReac Type Severity Reaction Status Date / Time No Known Allergies Allergy Verified 03/15/22 11:08 [facility] Social History Smoking Status: Current every day smoker tobacco type: cigarettes packs per day: 1 second hand exposure: Yes alcohol intake: never substance use type: heroin and opiates current occupational status: employed Travel in the last 8 weeks: None household members: other housing: house ROS Obtained: Yes All systems reviewed & no additional complaints except as documented Physical Exam General General appearance: alert Head Head exam: normocephalic Eye Eye exam: Present PERRL and EOMI ENT ENT exam: Present other (no mastoid tenderness and no reddness but sl swollen canal and part seen tm- ok but preauricular lymphnode tenderness) Neck Neck exam: Present full ROM and trachea midline; Absent meningismus or lymphadenopathy Respiratory Respiratory exam: Absent respiratory distress Cardiovascular Cardiovascular exam: Present regular rate Abdominal Exam Abdominal exam: Present soft Extremities Exam Extremities exam: Present full ROM Neurological Exam Neurological exam: Present alert, oriented X3 and CN II-XII intact Psychiatric Psychiatric exam: Present normal affect Skin Skin exam: Absent rash Medical Decision Making Medical Re
[2022-04-09 01:39] VITALS: BP 129/79; PULSE 90; RESP 16; TEMP 37.1; O2SAT 100
== END 2022-04-09 01:56 | disposition home or self-care (01) ==
PROVIDERS: Emergency Provider Emergency Medicine; PCP Nurse Practitioner Family
DX: H60.92 Unspecified otitis externa, left ear (principal); R06.02 Shortness of breath; F17.210 Nicotine dependence, cigarettes, uncomplicated; Z79.51 Long term (current) use of inhaled steroids; Z79.899 Other long term (current) drug therapy; Z88.8 Allergy status to other drugs, medicaments and biological substances
CPT/HCPCS: 96372; 99284; J0696

== ENCOUNTER → 2022-11-21 16:44 | Outpatient (CLI) | payer MEDICAID, SELFPAY ==
[2022-11-21 13:08] LABS: Benzodiazepines Screen,Urine Negative ng/ml (<200)
[2022-11-21 13:09] LABS: Amphetamine/Metha Screen,Urine Negative ng/ml (<1000)
[2022-11-21 13:10] LABS: Barbiturates Screen,Urine Negative ng/ml (<200); Cannabinoid Screen,Urine Negative ng/ml (<50)
[2022-11-21 13:11] LABS: Cocaine Screen,Urine Negative ng/ml (<300)
[2022-11-21 13:12] LABS: Methadone Screen,Urine Negative ng/ml (<300); Opiate Screen,Urine Negative ng/ml (<300)
[2022-11-21 13:13] LABS: Phencyclidine Screen,Urine Negative ng/ml (<25)
== END ==
PROVIDERS: PCP Nurse Practitioner Family; Visit Provider Nurse Practitioner Family
DX: F90.9 Attention-deficit hyperactivity disorder, unspecified type (principal)
CPT/HCPCS: 80305

== ENCOUNTER 2023-05-29 19:27 | Outpatient (CLI) | payer MEDICAID, SELFPAY ==
[2023-05-29 19:45] LABS: Basophils # 0.1 K/mm3 (0-0.2); Basophils % 0.9 % (0.1-2.0); Eosinophils # 0.3 K/mm3 (0.0-0.4); Eosinophils % 3.4 % (0.1-12.0); Hematocrit 47.3 % (42.0-52.0); Hemoglobin 15.9 g/dL (14.1-18.0); Lymphocytes # 2.2 K/mm3 (0.7-4.5); Lymphocytes % 30.6 % (10-50); Mean Corpuscular HGB Conc 33.5 g/dL (31.8-35.4); Mean Corpuscular Hemoglobin 32.1 pg (27.0-31.2); Mean Corpuscular Volume 95.7 fl (80-94); Mean Platelet Volume 8.9 fl (7.4-10.4); Monocytes # 0.4 K/mm3 (0.1-1.0); Monocytes % 6.1 % (1.7-9.3); Neutrophils # 4.2 K/mm3 (1.8-7.8); Neutrophils % 58.9 % (37.0-80.0); Platelet Count 303 K/mm3 (142-424); Red Blood Count 4.94 M/mm3 (4.60-6.20); Red Cell Distribution Width 13.6 % (11.5-17.5); White Blood Count 7.2 K/mm3 (4.8-10.8)
[2023-05-29 19:58] LABS: Alanine Aminotransferase 14 U/L (12-78); Albumin Level 4.7 g/dl (3.5-5.0); Albumin/Globulin Ratio 1.7 (1.1-1.8); Alkaline Phosphatase 89 U/L (38-126); Anion Gap 12.4 mEq/L (5-15); Aspartate Amino Transferase 22 U/L (17-59); Bilirubin,Total 0.5 mg/dl (0.2-1.3); Blood Urea Nitrogen 12 mg/dl (9-20); Carbon Dioxide 24 mmol/L (22.0-30.0); Chloride 104 mmol/L (98-107); Chol/HDL Ratio 3.3 (1-3.5); Cholesterol 183 mg/dl (140-200); Estimated Glomerular Filt Rate 107 ml/min (>60); GFR (African American) 129 ML/MIN (>60); Globulin 2.7 g/dL (1.3-3.2); HDL Cholesterol 56 mg/dl (40-60); Potassium 4.4 mmoL/L (3.5-5.1); Sodium 136 mmol/L (136-145); Total Protein,Serum 7.4 g/dl (6.3-8.2); Triglycerides 74 mg/dl (30-150); VLDL Cholesterol 15 mg/dL (0-40)
[2023-05-29 20:11] LABS: Direct LDL Cholesterol 109.66 mg/dL (100-129)
[2023-05-29 20:17] LABS: 25-OH Vitamin D, Total 20.8 ng/mL (30-100)
[2023-05-29 20:26] LABS: Hemoglobin A1C 4.8 % (4.0-6.0)
[2023-05-29 20:31] LABS: Thyroid Stimulating Hormone 0.31 uIU/mL (0.465-4.68)
[2023-05-29 21:36] LABS: Calcium 9.4 mg/dl (8.4-10.2); Glucose 96 mg/dl (74-100)
[2023-05-29 21:56] LABS: Barbiturates Screen,Urine Negative ng/ml (<200); Benzodiazepines Screen,Urine Negative ng/ml (<200); Cannabinoid Screen,Urine Negative ng/ml (<50); Cocaine Screen,Urine Negative ng/ml (<300); Methadone Screen,Urine Negative ng/ml (<300); Opiate Screen,Urine Negative ng/ml (<300); Phencyclidine Screen,Urine Negative ng/ml (<25)
[2023-06-04 03:37] LABS: Amphetamine Positive (.); Amphetamine (GC/MS) >3000 ng/mL (Cutoff=500); Amphetamines Positive (.); Methamphetamine Negative (Cutoff=500)
[2023-06-04 09:48] LABS: HIV Screen 4th Generation wRfx Non Reactive; Hep A Ab, Total Negative; Hepatitis B Surface Antigen Negative
[2023-06-04 09:49] LABS: Hep B Core Ab, Total Negative
[2023-06-04 09:52] LABS: Hep B Surface Ab, Qual Reactive
[2023-06-04 09:53] LABS: Fibrosis Score 0.04; Fibrosis Stage F0; Hepatitis C Antibody Non Reactive
[2023-06-04 09:54] LABS: Alpha 2-Macroglobulins, Qn 150; Haptoglobin 185; Necroinflammat Activity Grade A0; Necroinflammat Activity Score 0.02
[2023-06-04 09:55] LABS: Apolipoprotein A-1 148; Bilirubin, Total 0.2; GGT 17
[2023-06-04 09:56] LABS: ALT (SGPT) P5P 10
== END 2023-05-29 23:59 ==
LOC: LAB.DROPOF 19:28
PROVIDERS: Visit Provider Family Medicine
DX: Z79.899 Other long term (current) drug therapy (principal); R53.83 Other fatigue; F19.10 Other psychoactive substance abuse, uncomplicated; E55.9 Vitamin D deficiency, unspecified; E66.3 Overweight; Z68.27 Body mass index [BMI] 27.0-27.9, adult
CPT/HCPCS: 80053; 80061; 80307; 80324; 81596; 82306; 83036; 84443; 85025; 86703; 86704; 86706; 86708; 87340; 87380; 87522; G0432

== ENCOUNTER 2023-08-05 22:01 | Outpatient (CLI) | payer MEDICAID, SELFPAY ==
[2023-08-05 19:52] LABS: Basophils # 0.1 K/mm3 (0-0.2); Eosinophils # 0.2 K/mm3 (0.0-0.4); Eosinophils % 2.3 % (0.1-12.0); Hematocrit 49.8 % (42.0-52.0); Hemoglobin 16.5 g/dL (14.1-18.0); Lymphocytes # 1.9 K/mm3 (0.7-4.5); Lymphocytes % 24.1 % (10-50); Mean Corpuscular HGB Conc 33.1 g/dL (31.8-35.4); Mean Corpuscular Hemoglobin 32.4 pg (27.0-31.2); Mean Platelet Volume 8.8 fl (7.4-10.4); Monocytes # 0.4 K/mm3 (0.1-1.0); Monocytes % 4.5 % (1.7-9.3); Neutrophils # 5.3 K/mm3 (1.8-7.8); Neutrophils % 68.1 % (37.0-80.0); Platelet Count 279 K/mm3 (142-424); Red Blood Count 5.08 M/mm3 (4.60-6.20); White Blood Count 7.8 K/mm3 (4.8-10.8)
[2023-08-05 19:58] LABS: Chloride 106 mmol/L (98-107); Sodium 138 mmol/L (136-145)
[2023-08-05 19:59] LABS: Potassium 4.4 mmoL/L (3.5-5.1)
[2023-08-05 20:01] LABS: Alanine Aminotransferase 19 U/L (12-78); Albumin Level 4.6 g/dl (3.5-5.0); Albumin/Globulin Ratio 1.9 (1.1-1.8); Alkaline Phosphatase 74 U/L (38-126); Anion Gap 13.4 mEq/L (5-15); Aspartate Amino Transferase 23 U/L (17-59); Bilirubin,Total 0.3 mg/dl (0.2-1.3); Blood Urea Nitrogen 16 mg/dl (9-20); Carbon Dioxide 23 mmol/L (22.0-30.0); Estimated Glomerular Filt Rate 93 ml/min (>60); GFR (African American) 112 ML/MIN (>60); Globulin 2.4 g/dL (1.3-3.2)
[2023-08-05 20:02] LABS: Calcium 10.1 mg/dl (8.4-10.2); Glucose 104 mg/dl (74-100)
[2023-08-05 20:31] LABS: Thyroid Stimulating Hormone 1.21 uIU/mL (0.465-4.68)
[2023-08-05 20:36] LABS: Ferritin 4.56 ng/ml (17.9-464)
[2023-08-05 23:20] LABS: Folate 5.83 ng/mL
[2023-08-05 23:52] LABS: Vitamin B12 284 pg/mL (239-931)
== END 2023-08-05 23:59 ==
LOC: LAB.DROPOF 22:01
PROVIDERS: PCP Internal Medicine; Visit Provider Internal Medicine
DX: F90.9 Attention-deficit hyperactivity disorder, unspecified type (principal); R53.83 Other fatigue; Z79.899 Other long term (current) drug therapy; Z68.27 Body mass index [BMI] 27.0-27.9, adult; E66.3 Overweight
CPT/HCPCS: 80053; 82607; 82728; 82746; 84443; 85025

== ENCOUNTER 2023-10-06 19:05 | Emergency (ER) | payer MEDICAID, SELFPAY ==
[2023-10-06 19:25] VITALS: BP 153/85; PULSE 93; RESP 20; TEMP 36.8; O2SAT 97; BMI 28.0
--- NOTE | 2023-10-06 20:13 | ED_ITS ---
Discharge Plan Disposition Patient Disposition: Home, Self-Care Condition: Good Prescriptions Prescriptions: New azithromycin [Zithromax Z-Supa] 250 mg tablet See Rx Instructions .ROUTE .COMPLEX 5 Days Qty: 6 0RF Rx Instructions: For 250 mg dose pack: take 500 mg today (day 1), then 250 mg for 4 days (days 2-5) methylprednisolone [Medrol (Supa)] 4 mg tablets,dose pack See Rx Instructions .Route .COMPLEX 6 Days Qty: 21 0RF Rx Instructions: taper pack; guaifenesin [Mucinex] 600 mg tablet extended release 12hr 1,200 mg PO BID PRN (Reason: cough) Qty: 20 0RF No Action albuterol sulfate 90 mcg/actuation HFA aerosol inhaler 2 puff IH Q6H PRN (Reason: Shortness Of Breath Or Wheezing) Qty: 6.7 2RF fluticasone propion-salmeterol [Advair Diskus] 100-50 mcg/dose blister with device See Rx Instructions .ROUTE .COMPLEX Qty: 60 2RF Dose Instruction: INHALE 1 PUFF BY MOUTH 2 TIMES A DAY FOR ASTHMA Rx Instructions: INHALE 1 PUFF BY MOUTH 2 TIMES A DAY FOR ASTHMA dextroamphetamine-amphetamine 20 mg tablet 20 mg PO DAILY Referrals Follow up/Referrals: Jaswant De La Cruz DO [Primary Care Provider] - See instructions Activity Restrictions/Add. Instructions Additional Instructions/Restrictions: * Start antibiotic today. Be sure to complete entire prescription even if feeling better * Monitor temp. Tylenol every 4 hours as needed and / or ibuprofen every 6 hours as needed ( As long as your primary care physician has told you that it ok to take both. For fever/aches/pains ER if no less than 101 despite Tylenol or Motrin * Humidifier/vaporizer or hot steamy shower * Inhaler every 4-6 hours as needed like we discussed. If unsure how to use it, ask pharmacist to demonstrate how. Should help open airways and improve cough, wheezing, and shortness of breath * Mucinex for your cough Be sure to drink lots of water. *Promethazine DM cough syrup will cause drowsiness. Use only at night. No driving, operating machinery or caring for small children after taking it *Tessalon Perles will not cause drowsiness but use at bedtime to help stop cough so that you may get some rest. *Start steroid tomorrow. Helps with inflammation therefore, cough and wheezing. Follow directions on the package. Reviewed side effects. Patient reports taking them before. Follow up IMMEDIATELY for new or worsening of symptoms OR no noticeable improvement over the next 48-72 hours. 911 immediately for any life threatening symptoms such as chest pain or difficulty breathing Clinical Impressions Clinical Impression: Bronchitis Sinusitis Qualifiers: Sinusitis location: unspecified location Chronicity: unspecified Qualified Code(s): J32.9 - Chronic sinusitis, unspecified Stand Alone Forms Stand Alone Forms: Work/School Release Instructions Patient Instructions: Acute Bronchitis, DI for Sinusitis Discharge ED Provider: Jacinta Price [facility] General Stated complaint: fever, maria a weak Mode of Arrival: Ambulatory Source of Information: Patient Limitations: No Limitations Time Seen by Provider: 10/06/23 20:13 Description of Symptoms (Recalled from Triage Doc. by RN): PATIENT C/O FEVER, WEAKNESS, CONGESTION, COUGH, AND CHEST CONGESTION/SORENESS X 3 DAYS HEENT Symptoms (Recalled from RN notes): Yes Resp Symptoms (Recalled from RN notes): Yes Skin Symptoms (Recalled from RN notes): No MS Symptoms (Recalled from RN notes): No Functional Status (Recalled from RN notes): WNL History of Present Illness Provider Complaint: Patient states that he hasnt felt well for about a week but worse in the last few days States that he has been having sinus congestion and pressure that feels like it is trying to move into his chest, states that he is feeling congested in his chest and coughing up white sputum at times with pressure behind his eyes and sinus headache States he wanted to come in and get soemthing before it got worse Related Data Home Medications Medication Instructions Recorded Confirmed dextroamphetamine-amphetamine 20 20 mg PO DAILY 10/06/23 10/06/23 mg tablet Previous Rx's Medication Instructions Recorded albuterol sulfate 90 mcg/actuation 2 puff inhalation Q6H PRN 03/24/23 aerosol inhaler Shortness Of Breath Or Wheezing #6.7 grams fluticasone 100 mcg-salmeterol 50 See Rx Instructions .Route 03/24/23 mcg/dose blistr powdr for .COMPLEX #60 ea inhalation (Advair Diskus) azithromycin 250 mg tablet See Rx Instructions PO .COMPLEX 5 10/06/23 (Zithromax Z-Supa) days #6 tabs guaifenesin 600 mg tablet, 1,200 mg (2 x 600 mg) PO BID PRN 10/06/23 extended release 12 hr (Mucinex) cough #20 tabs methylprednisolone 4 mg tablets in See Rx Instructions .Route 10/06/23 a dose pack (Medrol (Supa)) .COMPLEX 6 days #21 tabs Allergies Allergy/AdvReac Type Severity Reaction Status Date / Time No Known Allergies Allergy Verified 08/05/23 13:27 Worker's Comp Is this a Worker's Comp case?: No [facility] Disclaimer: The information contained in this section may have been updated after the patient was seen, as this information can be updated by other users. Medical History (Updated 10/06/23 @ 20:23 by Jacinta Price APRN) ADHD Otitis externa COVID-19 Viral syndrome Pharyngitis Encounter for laboratory testing for COVID-19 virus Exposure to COVID-19 virus URI (upper respiratory infection) Sinusitis Bronchitis Asthma exacerbation Vomiting Social History Smoking Status: Current every day smoker tobacco type: cigarettes packs per day: 1 second hand exposure: Yes alcohol intake: never substance use type: heroin and opiates current occupational status: employed Travel in the last 8 weeks: None household members: other housing: house ROS Obtained: Yes All systems reviewed & no additional complaints except as documented and Yes Systems reviewed as appropriate & no additional complaints except as documented Constitutional Constitutional: Reports system reviewed and no additional complaints, except as documented and Reports as per HPI ENT Ears, Nose, Mouth, and Throat: Reports system reviewed and no additional complaints, except as documented, Reports as per HPI, Reports sinus pain and Reports sinus pressure Cardiovascular Cardiovascular: Reports system reviewed and no additional complaints, except as documented and Reports as per HPI Respiratory Respiratory: Reports system reviewed and no additional complaints, except as documented, Reports as per HPI, Reports chest congestion and Reports cough Gastrointestinal Gastrointestingal: Reports system reviewed and no additional complaints, except as documented and as per HPI Physical Exam General General appearance: alert and in no apparent distress ENT ENT exam: Present mucous membranes moist Expanded ENT Exam Nose exam: Present sinus tenderness Throat exam: Present other (PND noted) Respiratory Respiratory exam: Present normal lung sounds bilaterally; Absent respiratory distress or wheezes Cardiovascular Cardiovascular exam: Present regular rate, normal rhythm and normal heart sounds Neurological Exam Neurological exam: Present alert, oriented X3 and normal gait Medical Decision Making Rodríguez Inquiry Pt receiving controlled substance: No Rodríguez was queried for this patient: No Vital Signs: 10/06/23 19:25 Temperature 98.2 F Temperature Source Oral Pulse Rate [Left Brachial] 93 H Respiratory Rate 20 Blood Pressure [Left Arm] 153/85 H Blood Pressure Mean [Left Arm] 107 Blood Pressure Source [Left Arm] Automatic Cuff Blood Pressure Position [Left Arm] Sitting 02 Sat by Pulse Oximetry 97 Oxygen Delivery Method Room Air
[2023-10-06] MEDS: cefTRIAXone 1GM VIAL 1 GM IM (20:30)
[2023-10-06] MEDS: LIDOCAINE 1% 5ML PF VIAL IM (20:30)
[2023-10-06] MEDS: METHYLPREDNISOLONE SOD SUCC 125MG VIAL 125 MG IM (20:30)
[2023-10-06 20:34] VITALS: BP 153/85; PULSE 93; RESP 20; TEMP 36.8; O2SAT 97
== END 2023-10-06 20:51 | disposition home or self-care (01) ==
PROVIDERS: Emergency Provider Nurse Practitioner; PCP Internal Medicine
DX: J20.9 Acute bronchitis, unspecified (principal); J01.90 Acute sinusitis, unspecified; R51.9 Headache, unspecified; R05.9 Cough, unspecified
CPT/HCPCS: 96372; 99212; 99214; G0463; J0696

== ENCOUNTER 2024-03-23 18:33 | Emergency (ER) | payer MEDICAID, SELFPAY ==
[2024-03-23 18:40] VITALS: BP 140/90; PULSE 101; RESP 19; TEMP 36.6; O2SAT 98; BMI 28.0
--- NOTE | 2024-03-23 19:04 | ED_ITS ---
Discharge Plan Disposition Patient Disposition: Home, Self-Care Condition: Good Prescriptions Prescriptions: No Action albuterol sulfate 90 mcg/actuation HFA aerosol inhaler 2 puff IH Q6H PRN (Reason: Shortness Of Breath Or Wheezing) Qty: 6.7 2RF fluticasone propion-salmeterol [Advair Diskus] 100-50 mcg/dose blister with device See Rx Instructions .ROUTE .COMPLEX Qty: 60 2RF Dose Instruction: INHALE 1 PUFF BY MOUTH 2 TIMES A DAY FOR ASTHMA Rx Instructions: INHALE 1 PUFF BY MOUTH 2 TIMES A DAY FOR ASTHMA cholecalciferol (vitamin D3) 250 mcg (10,000 unit) capsule 250 mcg PO DAILY 30 Days Qty: 30 2RF dextroamphetamine-amphetamine 20 mg tablet 20 mg PO BID 30 Days Qty: 60 0RF Rx Instructions: administer doses at least 4-6 hours apart dextroamphetamine-amphetamine 20 mg tablet 20 mg PO BID Qty: 60 0RF guaifenesin [Mucinex] 600 mg tablet extended release 12hr 1,200 mg PO BID PRN (Reason: cough) Qty: 20 0RF Referrals Follow up/Referrals: Jaswant De La Cruz DO [Primary Care Provider] - See instructions Activity Restrictions/Add. Instructions Additional Instructions/Restrictions: Use Gentamycin drops as you was instructed 2 drops in each eye every 4 hours tonight and be at [facility] in the morning at 8am Do not rub your eyes Take over the counter Motrin and/or Tylenol for pain Further care per [facility] in the morning Clinical Impressions Clinical Impression: Eye problems Instructions Patient Instructions: Gentamicin Ophthalmic Print Language Print Language: [place] Discharge ED Provider: Jacinta Price [facility] HPI General Stated complaint: poss scratched both eyes with contacts Mode of Arrival: Ambulatory Source of Information: Patient Limitations: No Limitations Time Seen by Provider: 03/23/24 19:04 Description of Symptoms (Recalled from Triage Doc. by RN): PATIENT STATES HE FELL ASLEEP WITH HIS CONTACTS IN LAST NIGHT AND THINKS HE SCRATCHED HIS EYES WITH THEM THIS MORNING HEENT Symptoms (Recalled from RN notes): Yes Resp Symptoms (Recalled from RN notes): No Skin Symptoms (Recalled from RN notes): No MS Symptoms (Recalled from RN notes): No Functional Status (Recalled from RN notes): WNL History of Present Illness Provider Complaint: Patient states that he fell asleep in his contacts last night and when he woke up this morning his eyes was hurting felt dry and felt like he scratched them when he took his contacts out States that as the day went on he continued to feel worse and both eyes was red and watery so he came in to get them checked Related Data Previous Rx's ?Medication ?Instructions ?Recorded albuterol sulfate 90 mcg/actuation 2 puff inhalation Q6H PRN 03/24/23 aerosol inhaler Shortness Of Breath Or Wheezing #6.7 grams fluticasone 100 mcg-salmeterol 50 See Rx Instructions .Route 03/24/23 mcg/dose blistr powdr for .COMPLEX #60 ea inhalation (Advair Diskus) guaifenesin 600 mg tablet, 1,200 mg (2 x 600 mg) PO BID PRN 10/06/23 extended release 12 hr (Mucinex) cough #20 tabs cholecalciferol (vitamin D3) 250 250 mcg PO DAILY 30 days #30 caps 10/30/23 mcg (10,000 unit) capsule dextroamphetamine-amphetamine 20 20 mg PO BID #60 tabs 10/30/23 mg tablet dextroamphetamine-amphetamine 20 20 mg PO BID 30 days #60 tabs 10/30/23 mg tablet Allergies Allergy/AdvReac Type Severity Reaction Status Date / Time No Known Allergies Allergy Verified 10/30/23 10:35 Worker's Comp Is this a Worker's Comp case?: No [facility] Disclaimer: The information contained in this section may have been updated after the patient was seen, as this information can be updated by other users. Medical History ADHD Otitis externa COVID-19 Viral syndrome Pharyngitis Encounter for laboratory testing for COVID-19 virus Exposure to COVID-19 virus URI (upper respiratory infection) Sinusitis Bronchitis Asthma exacerbation Vomiting Social History Smoking Status: Current every day smoker tobacco type: cigarettes packs per day: 1 second hand exposure: Yes alcohol intake: never substance use type: heroin and opiates current occupational status: employed Travel in the last 8 weeks: None household members: other housing: house ROS Obtained: Yes All systems reviewed & no additional complaints except as documented and Yes Systems reviewed as appropriate & no additional complaints except as documented Constitutional Constitutional: Reports system reviewed and no additional complaints, except as documented and Reports as per HPI Eyes Eyes: Reports system reviewed and no additional complaints, except as documented, Reports as per HPI, Reports eye discharge and Reports irritation ENT Ears, Nose, Mouth, and Throat: Reports system reviewed and no additional complaints, except as documented and Reports as per HPI Cardiovascular Cardiovascular: Reports system reviewed and no additional complaints, except as documented and Reports as per HPI Respiratory Respiratory: Reports system reviewed and no additional complaints, except as documented and Reports as per HPI Physical Exam General General appearance: alert and in no apparent distress Eye Eye exam: Present discharge and other (watering and redness noted) Respiratory Respiratory exam: Present normal lung sounds bilaterally; Absent respiratory distress or wheezes Cardiovascular Cardiovascular exam: Present regular rate, normal rhythm and normal heart sounds Abdominal Exam Abdominal exam: Present soft and normal bowel sounds; Absent distention or tenderness Neurological Exam Neurological exam: Present alert, oriented X3 and normal gait Medical Decision Making Medical Records Screening: Per USPSTF and CDC recommendations, given the prevalence of disease in our region, it is our hospital?s policy to screen for HIV and viral Hepatitis for all patients aged 18 and over and those with ongoing risk factors. Rodríguez Inquiry Pt receiving controlled substance: No Rodríguez was queried for this patient: No Vital Signs: 03/23/24 18:40 Temperature 97.8 F Temperature Source Oral Pulse Rate [Left Brachial] 101 H Respiratory Rate 19 Blood Pressure [Left Arm] 140/90 Blood Pressure Mean [Left Arm] 106 Blood Pressure Source [Left Arm] Automatic Cuff Blood Pressure Position [Left Arm] Sitting 02 Sat by Pulse Oximetry 98 Oxygen Delivery Method Room Air Medical Decision Narrative: No contacts noted initially when veiwing eyes, after staining eyes appears like more contacts was remaining in both eyes as patient reports that he removed contacts this morning and contacts would not come out after flushing eyes with saline, contacted Dr Aguero and he advised to flush eyes well, put in some Gentamycin drops and have patient put in 2 drops every 4 hours and be at the clinic in the morning at 8am
[2024-03-23] MEDS: FLUORESCEIN SODIUM 1MG STRIP 1 MG OP (19:14)
[2024-03-23] MEDS: TETRACAINE 0.5% OPTH SOL 15ML OP (19:14)
[2024-03-23 19:15] VITALS: BP 140/90; PULSE 101; RESP 19; TEMP 36.6; O2SAT 98
== END 2024-03-23 19:17 | disposition home or self-care (01) ==
PROVIDERS: Emergency Provider Nurse Practitioner; PCP Internal Medicine
DX: H57.9 Unspecified disorder of eye and adnexa (principal); H57.13 Ocular pain, bilateral; H57.8A3 Foreign body sensation, bilateral eyes
CPT/HCPCS: 99212; G0381